=== PATIENT | male | born 1975 | race Caucasian/White ===

== ENCOUNTER 2018-12-01 03:35 | Emergency (ER) | payer OTHER ==
[~2018-12-01] VITALS: Ht 188 cm; Wt 102.5 kg
[2018-12-01] MEDS ORDERED: KEFLEX500 M1 PO (05:14)
[2018-12-01 05:35] VITALS: BP 170/81
== END 2018-12-01 05:36 | disposition home or self-care (01) ==
LOC: M.ERS 03:35
DX: S02.2XXA Fracture of nasal bones, initial encounter for closed fracture (principal); S01.01XA Laceration without foreign body of scalp, initial encounter; F10.129 Alcohol abuse with intoxication, unspecified; R04.0 Epistaxis; F17.210 Nicotine dependence, cigarettes, uncomplicated; Z90.89 Acquired absence of other organs; Y04.2XXA Assault by strike against or bumped into by another person, initial encounter; Y92.481 Parking lot as the place of occurrence of the external cause; Y93.89 Activity, other specified; Y99.8 Other external cause status

== ENCOUNTER 2018-12-21 12:48 | Emergency (ER) | payer OTHER ==
[~2018-12-21] VITALS: Ht 188 cm; Wt 99.8 kg
[~2018-12-21 12:48] MED LIST: KEFLEX500 M1 PO
[2018-12-21 12:52] VITALS: BP 153/100
== END 2018-12-21 13:07 | disposition home or self-care (01) ==
LOC: M.ERS 12:48
DX: S01.01XD Laceration without foreign body of scalp, subsequent encounter (principal); F17.210 Nicotine dependence, cigarettes, uncomplicated; Z90.89 Acquired absence of other organs; X58.XXXD Exposure to other specified factors, subsequent encounter

== ENCOUNTER 2021-03-23 04:14 | Emergency (ER) | payer OTHER ==
[~2021-03-23] VITALS: Ht 188 cm; Wt 86.2 kg
[2021-03-23] MEDS ORDERED: BLOOD PRESSURE MEDIC (04:18)
[2021-03-23 04:47] LABS: HEMATOCRIT 40.8 % (42.0-52.0); HEMOGLOBIN 13.5 gm/dL (14.0-18.0); MCH 29.1 pg (26.0-34.0); MCHC 33.2 g/dL (28.0-37.0); MCV 87.7 fL (80.0-100.0); MPV 8.4 fl. (7.2-11.1); RBC 4.65 mil/uL (4.50-6.00); RDW-CV 14.5 % (10.5-14.5); WBC 10.1 thou/uL (4.0-11.0)
[2021-03-23 05:03] LABS: PROTIME 11.1 Seconds (9.20-11.50)
[2021-03-23 05:05] LABS: CALCIUM 7.7 mg/dL (8.5-10.1); CREATININE 1.1 mg/dL (0.6-1.3); POTASSIUM 4.1 mmol/L (3.5-5.1)
[2021-03-23 05:08] LABS: ALBUMIN 3.3 g/dL (3.4-5.0); TOTAL BILIRUBIN 0.2 mg/dL (<0.1-1.0); TOTAL PROTEIN 6.5 g/dL (6.4-8.2)
[2021-03-23 06:15] VITALS: BP 155/78
== END 2021-03-23 06:15 | disposition short-term general hospital (02) ==
LOC: M.ERS 04:14
PROVIDERS: Personal Emergency Response Attendant
DX: S02.642A Fracture of ramus of left mandible, initial encounter for closed fracture (principal); Z20.822 Contact with and (suspected) exposure to COVID-19; S80.811A Abrasion, right lower leg, initial encounter; M54.2 Cervicalgia; F10.129 Alcohol abuse with intoxication, unspecified; G89.29 Other chronic pain; F17.210 Nicotine dependence, cigarettes, uncomplicated; X58.XXXA Exposure to other specified factors, initial encounter; Y93.89 Activity, other specified; Y92.89 Other specified places as the place of occurrence of the external cause; Y99.8 Other external cause status; Y90.8 Blood alcohol level of 240 mg/100 ml or more